=== PATIENT | female | born 1945 | race Caucasian/White ===

== ENCOUNTER 2022-05-03 15:54 | Inpatient (IN) | payer OTHER ==
[~2022-05-03] VITALS: Ht 160 cm; Wt 78.5 kg
[2022-05-03 16:14] VITALS: BP 147/79
[2022-05-03] MEDS ORDERED: NACL 0.9% 1,000 ML IV ONE ×2 (16:55→19:25)
--- NOTE | 2022-05-03 17:05 | NUR ---
76YO FEMALE PT C/O THROBBING 7/10 R HAND PAIN X5DAYS. PT REPORTS RADIATION UP TO L SHOULDER ALONG W/ UNCONTROLLED MUSCLE SPASMS THAT LAST UP TO 10MIN. DURING ASSESSMENT PT HAD X2 EPISODES THAT CAUSED ABNORMAL FLEXION, DENIES LOSS OF SENSATION. PT UNABLE TO MOVE FINGERS AND STATES IS NOT AT BASELINE. CAP REFILL <3 THROUGHOUT HAND AND ARM. ARM PRESENTS W/O PHYSICAL INJURY . PT ALSO C/O INFECTION UNDER R THUMB NAIL DUE TO FINGER BITING AND PRESENTS WITH REDDENED SWELLING. PT AAOX4, NO VISIBLE DISTRESS. RSPIRATIONS EVEN AND UNLABORED. PT AMBULATORY USING WHEELCHAIR. BED AT LOWEST POSITION, BED RAIL UPX2. PT ON MONITOR HX: RA, HTN, DIABETES NKA
--- NOTE | 2022-05-03 17:35 | NUR ---
IV 20GA RT HAND
--- NOTE | 2022-05-03 17:39 | NUR ---
ER AT BEDSIDE FOR EVAL
--- NOTE | 2022-05-03 17:47 | NUR ---
LAB AT BEDSIDE SIDE
[2022-05-03 18:18] LABS: BASOPHILS % (AUTO) 0.7 % (0.0-2.0); EOSINOPHILS # (AUTO) 0.1 K/uL (0-0.4); EOSINOPHILS % (AUTO) 0.9 % (0.0-4.0); HEMATOCRIT 35.7 % (36-48); HEMOGLOBIN 11.8 g/dL (12.0-16.0); LYMPHOCYTES % (AUTO) 14.1 % (20.5-51.1); MEAN CORPUSCULAR HEMOGLOBIN 32 pg (27-31); MEAN CORPUSCULAR HGB CONC 33 g/dL (33-37); MONOCYTES # (AUTO) 0.3 K/uL (0.8-1.0); MONOCYTES % (AUTO) 4.8 % (1.7-9.3); NEUTROPHILS # (AUTO) 5.6 K/uL (1.8-7.7); NEUTROPHILS % (AUTO) 79.5 % (42.2-75.2); PLATELET COUNT (AUTO) 349 K/uL (140-450); RED BLOOD CELL COUNT(AUTO) 3.76 MIL/uL (4.20-5.40)
[2022-05-03 18:43] LABS: ALBUMIN 2.4 g/dL (3.4-5.0); ANION GAP 22.4 (8-16); ASPARTATE AMINOTRANSFERASE 14 U/L (15-37); CARBON DIOXIDE 16.8 mmol/L (21-32); CHLORIDE 101 mmol/L (98-107); POTASSIUM 4.2 mmol/L (3.5-5.1); SODIUM SERUM 136 mmol/L (136-145); TOTAL BILIRUBIN 0.5 mg/dL (0.0-1.0); UREA NITROGEN, BLOOD 28 mg/dL (7-18)
[2022-05-03 18:45] LABS: GLUCOSE 454 mg/dL (74-106)
[2022-05-03] MEDS ORDERED: INSULIN REGULAR, HUMAN 100 UNIT in NACL 0.9% 100 ML IV ONE ×2 (19:25)
--- NOTE | 2022-05-03 19:30 | NUR ---
REPORT GIVEN TO YANNA LANE. ALL QUESTIONS ANSWERED. TRANSFER OF CARE AT THIS TIME
--- NOTE | 2022-05-03 20:00 | NUR ---
ASSUMED CARE AT THIS TIME
[2022-05-03] MEDS ORDERED: POTASSIUM CHL 20 MEQ/ 1/2 NS 1,000 ML IV ONE (20:40)
[2022-05-03] MEDS ORDERED: KCL 20 MEQ/WATER INJ PREMIX 200 ML IV PRN (21:00)
[2022-05-03] MEDS ORDERED: MAGNESIUM OXIDE 400 MG TAB PO PRN (21:00)
[2022-05-03] MEDS ORDERED: ACETAMINOPHEN 325 MG TAB PO PRN (21:00)
[2022-05-03] MEDS ORDERED: POTASSIUM CHLORIDE 10 MEQ TABER PO PRN (21:00)
[2022-05-03] MEDS ORDERED: HYDROcodone/APAP 5/325 MG 1 TAB TAB PO PRN (21:00)
[2022-05-03] MEDS ORDERED: MAG SULF 2000 MG/WATER PREMIX 50 ML IV PRN (21:00)
[2022-05-03] MEDS ORDERED: ONDANSETRON 4 MG/2 ML VIAL IVP PRN (21:00)
[2022-05-03] MEDS ORDERED: MORPHINE SULFATE 4 MG/ML SYR IVP PRN (21:00)
[2022-05-03] MEDS ORDERED: DEXTROSE 50% 50 ML SYR IVP PRN (21:05)
[2022-05-03] MEDS: BLOOD GLUCOSE MONITORING 1 DEV DEV FS SCH ×3 (21:34→22:38)
--- NOTE | 2022-05-03 22:30 | NUR ---
BG 90. INSULIN GTT HELD
[2022-05-03] MEDS ORDERED: GLIP5TER PO (23:11)
[2022-05-03] MEDS ORDERED: CEPH-588 PO (23:11)
[2022-05-03] MEDS ORDERED: MEX2.5 (23:11)
[2022-05-03] MEDS ORDERED: METF-346 PO (23:11)
[2022-05-03] MEDS ORDERED: VITA1TAB44 PO (23:13)
[2022-05-03] MEDS: NACL 0.9% 1,000 ML IV SCH (23:17)
--- NOTE | 2022-05-03 23:20 | NUR ---
TO ICU VIA [facility]. ACCOMPANIED BY RN AND ERT
--- NOTE | 2022-05-03 23:30 | NUR ---
RECEIVED REPORT FROM ER (REJI BUTLER). PATIENT IS ADMITTED TO ICU FOR MANAGEMENT OF DKA. WILL CONTINUE TO MONITOR BLOOD GLUCOSE LEVELS PER MD ORDERS. PATIENT IS AWAKE, ALERT AND ORIENTED, HAS PERIPHERAL IV RIGHT HAND (18) AND PERIPHERAL IV LEFT FOREARM (18G). PATIENT HAS NOTICEABLE, TREMOR OF LEFT HAND; ALSO HAS COMPLAINTS OF LEFT ARM PAIN AND WEAKNESS. REFER TO IMAGING REPORTS FOR LEFT WRIST.
[2022-05-04] VITALS (12 sets, daily range): BP systolic 97–139; BP diastolic 49–75
--- NOTE | 2022-05-04 | NUR ---
PATIENT REPORTS THAT SHE HAS HISTORY OF FALLS, MOST RECENTLY HAD A FALL APPROXIMATELY 1 WEEK AGO AT HOME, HIT HEAD ON BATHTUB.
[2022-05-04] MEDS: BLOOD GLUCOSE MONITORING 1 DEV DEV FS SCH ×19 (00:05→23:46)
--- NOTE | 2022-05-04 00:30 | NUR ---
0000 LAB RESULTS ANION GAP: 17.8 LAST GLUCOSE = [address] MCCLELLAND FOR NEW ORDERS
[2022-05-04 01:22] LABS: ANION GAP 17.8 (8-16); CHLORIDE 106 mmol/L (98-107); CREATININE 0.7 mg/dL (0.6-1.3); GLUCOSE 97 mg/dL (74-106); POTASSIUM 3.8 mmol/L (3.5-5.1); SODIUM SERUM 142 mmol/L (136-145); UREA NITROGEN, BLOOD 23 mg/dL (7-18)
[2022-05-04 01:27] LABS: MAGNESIUM 1.9 mg/dL (1.8-2.4); PHOSPHORUS 2.5 mg/dL (2.5-4.9)
[2022-05-04] MEDS ORDERED: INSULIN LISPRO SLIDING SCALE 100 UNITS/ML VIAL SUBQ PRN (03:05)
--- NOTE | 2022-05-04 05:40 | NUR ---
RECEIVED PHONE CALL FROM PATIENT'S SON; YUE WHO REPORTS THAT PATIENT INITIALLY ARRIVED TO ER FOR EVALUATION OF LEFT THUMB INFECTION AND REQUESTED THAT FINGER RECEIVE TREATMENT. PER SON, IF YOU SQUEEZE THE FINGER, BLOOD AND PUS COME OUT. FINGER HAS BEEN POSSIBLY AFFECTED X1 WEEK. INFORMED SON THAT I WOULD ENDORSE CONCERN TO DAY SHIFT FOR FOLLOW UP
--- NOTE | 2022-05-04 06:09 | NUR ---
PATIENT WITH SEIZURE LIKE ACTIVITY LASTING 2 MINUTES AND 11 SECONDS WITH COMPLETE ABSENCE OF SPEECH, BLANK STARE, AND TWITCHING OF LEFT EYE. IT WAS NOTED THAT PATIENT HAD BECOME INCONTINENT OF URINE; WAS PREVIOUSLY ABLE TO VERBALIZE WHEN SHE NEEDED TO USE THE RESTROOM UPON CESSATION OF MOVEMENT PATIENT BEGAN TO SPEAK AGAIN AND THREATEN TO BITE AND HIT NURSING STAFF. PATIENT. CALL PLACED TO DR. LUNA TO REPORT MORNING EPISODE. VERBALLY NOTIFIED
[2022-05-04 06:24] LABS: MAGNESIUM 1.9 mg/dL (1.8-2.4); PHOSPHORUS 2.6 mg/dL (2.5-4.9)
[2022-05-04 06:28] LABS: ALBUMIN 2.4 g/dL (3.4-5.0); ANION GAP 20.4 (8-16); ASPARTATE AMINOTRANSFERASE 18 U/L (15-37); CARBON DIOXIDE 19.6 mmol/L (21-32); CHLORIDE 105 mmol/L (98-107); CREATININE 0.7 mg/dL (0.6-1.3); GLUCOSE 175 mg/dL (74-106); SODIUM SERUM 141 mmol/L (136-145); TOTAL BILIRUBIN 0.4 mg/dL (0.0-1.0); UREA NITROGEN, BLOOD 21 mg/dL (7-18)
[2022-05-04 06:59] LABS: BASOPHILS % (AUTO) 0.5 % (0.0-2.0); EOSINOPHILS # (AUTO) 0.1 K/uL (0-0.4); EOSINOPHILS % (AUTO) 1.2 % (0.0-4.0); HEMATOCRIT 35.4 % (36-48); HEMOGLOBIN 11.7 g/dL (12.0-16.0); LYMPHOCYTES # (AUTO) 1.6 K/uL (2.5-16.5); MEAN CORPUSCULAR HEMOGLOBIN 32 pg (27-31); MEAN CORPUSCULAR HGB CONC 33 g/dL (33-37); MEAN CORPUSCULAR VOLUME 96.3 fL (80-94); MONOCYTES # (AUTO) 0.4 K/uL (0.8-1.0); MONOCYTES % (AUTO) 5.4 % (1.7-9.3); NEUTROPHILS # (AUTO) 4.9 K/uL (1.8-7.7); NEUTROPHILS % (AUTO) 69.9 % (42.2-75.2); PLATELET COUNT (AUTO) 337 K/uL (140-450); RED BLOOD CELL COUNT(AUTO) 3.67 MIL/uL (4.20-5.40); RED CELL DISTRIBUTION WIDTH 15.3 % (11.6-13.7)
--- NOTE | 2022-05-04 07:15 | NUR ---
RECEIVED PT ALERT AND ORIENTED X4, ABLE TO VERBALIZE NEEDS. O2 SAT 100% ON ROOM AIR. SINUS RHYTHM WITH BBB ON MONITOR. BOWEL SOUNDS ACTIVE X 4 QUADS. CONTINENT BOWEL AND BLADDER. PERIPHERAL IV 20 GAUGE ON RIGHT HAND INTACT AND PATENT. PERIPHERAL IV 20 GAUGE ON LEFT FOREARM INTACT AND PATENT. SAFETY PRECAUTIONS IN PLACE.
--- NOTE | 2022-05-04 07:22 | NUR ---
ENDORSED CARE OF PATIENT TO DAY SHIFT (REJI CALVIN)
[2022-05-04] MEDS ORDERED: BLOOD GLUCOSE MONITORING 1 DEV DEV FS SCH ×2 (07:30→10:30)
--- NOTE | 2022-05-04 07:33 | NUR ---
PT HAD AN EPISODE OF SPASM OF UPPER BODY. DURING EPISODE, PT WAS ABLE TO HOLD CONVERSATION AND TRACK WITH EYES. NEURO ASSESSMENT DONE AND PT A&OX4. VSS. NO C/O PAIN. SAFETY PRECAUTIONS IN PLACE.
[2022-05-04] MEDS: NACL 0.9% 1,000 ML IV SCH ×4 (08:34→20:45)
--- NOTE | 2022-05-04 08:46 | NUR ---
DC PLANNIN YRS OLD FEMALE PATIENT WAS ADMITTED FROM HOME WITH A DX OF DKA. PATIENT HAS A HX OF DM, HTN AND RA. CXR NORMAL, XR LEFT WRIST NO ACUTE OSSEOUS ABNORMALITY. RAPID COVID TEST NEGATIVE. ANION GAP 22.4-17.8 AND 20.4 SEEN BY CRITICAL MD DR HORTON ORDERED INSULIN DRIP. DC PLAN TO GO HOME WHEN STABLE CM TO FOLLOW Addendum: 05/06/22 at 1443 by Linda Sam RN DC PLANNING: PER NEUROLOGIST RECOMMENDED MRI OF THE BRAIN TO BE DONE. CALLED [facility]ELLE SPOKE WITH TRAFFIC RATE COMPUTER ELMO STATED IF PT GETS HERE WITH IN ONE HR HE WILL BE ABLE TO DO IT. ARRANGED TRANSPORT WITH [facility] PT WILL BE PICKED UP WITH IN 30 MIN. NOTIFIED JANUSZ MENDOZA. CM TO FOLLOW
--- NOTE | 2022-05-04 08:50 | NUR ---
CONTACTED DR. LUNA REGARDING ANION GAP AND DISCUSSED DR. MCCLELLAND'S DISCONTINUED INSULIN DRIP. NEW ORDER RECEIVED FOR DIET. INFORMED DR. LUNA REGARDING LEFT THUMB REDNESS. PER MD, WILL COME IN TO TAKE A LOOK AT LEFT THUMB REDNESS.
--- NOTE | 2022-05-04 09:03 | NUR ---
PATIENT HAS BEEN SCREENED AND CATEGORIZED HIGH NUTRITION RISK. PATIENT WILL BE SEEN WITHIN 1-2 DAYS OF ADMISSION. / VIJI FARMER RD
--- NOTE | 2022-05-04 10:11 | NUR ---
DR. JACOB AT BEDSIDE EXAMINING PT. PT WITH UPPER BODY SPASM AND STATES THAT SPASMS STARTED SINCE SHE HIT HER HEAD ON BATHTUB ON TUESDAY. NEW ORDER RECEIVED FOR NEURO CONSULT AND EEG. DISCUSSED LEFT THUMB REDNESS AND ANION GAP. NEW ORDER RECEIVED.
[2022-05-04 10:24] LABS: ANION GAP 19.2 (8-16); CARBON DIOXIDE 21.2 mmol/L (21-32); CHLORIDE 104 mmol/L (98-107); CREATININE 0.7 mg/dL (0.6-1.3); GLUCOSE 182 mg/dL (74-106); POTASSIUM 4.4 mmol/L (3.5-5.1); SODIUM SERUM 140 mmol/L (136-145); UREA NITROGEN, BLOOD 19 mg/dL (7-18)
[2022-05-04] MEDS ORDERED: INSULIN REGULAR, HUMAN 100 UNIT in NACL 0.9% 100 ML IV SCH ×2 (10:25)
[2022-05-04 10:43] LABS: MAGNESIUM 1.8 mg/dL (1.8-2.4); PHOSPHORUS 2.2 mg/dL (2.5-4.9)
[2022-05-04] MEDS ORDERED: DEXTROSE 50% 50 ML SYR IVP PRN (10:45)
[2022-05-04] MEDS: INSULIN REGULAR, HUMAN 100 UNIT in NACL 0.9% 100 ML IV SCH ×6 (11:47→23:47)
[2022-05-04] MEDS: DEXT 5% / NACL 0.45% 1,000 ML IV SCH ×3 (11:49→20:28)
--- NOTE | 2022-05-04 12:58 | NUR ---
URINE CULTURE COLLECTED AND WALKED TO LAB.
--- NOTE | 2022-05-04 13:00 | NUR ---
Dr. Humphries at bedside examining pt. Pt with an episode of spasms that lasted for 10 seconds. Pt able to hold conversation during spasms with the doctor.
[2022-05-04 13:16] LABS: ANION GAP 18.5 (8-16); CARBON DIOXIDE 21.3 mmol/L (21-32); CHLORIDE 103 mmol/L (98-107); CREATININE 0.6 mg/dL (0.6-1.3); GLUCOSE 228 mg/dL (74-106); POTASSIUM 3.8 mmol/L (3.5-5.1); SODIUM SERUM 139 mmol/L (136-145); UREA NITROGEN, BLOOD 17 mg/dL (7-18)
[2022-05-04 13:24] LABS: MAGNESIUM 1.7 mg/dL (1.8-2.4); PHOSPHORUS 2.4 mg/dL (2.5-4.9)
[2022-05-04 13:56] LABS: APPEARANCE,URINE CLEAR (CLEAR); BILIRUBIN,URINE 1+ (NEGATIVE); BLOOD, URINE TRACE-I (NEGATIVE); COLOR,URINE YELLOW (YELLOW); LEUKOCYTE ESTERASE ,URINE 2+ (NEGATIVE); NITRITE, URINE NEGATIVE (NEGATIVE); UGLUCOSE 2+ (NEGATIVE)
[2022-05-04 14:25] LABS: RBC,URINE 0-5 /HPF (0-5)
[2022-05-04 14:27] LABS: OTHER CASTS, URINE None Seen /LPF (None Seen)
--- NOTE | 2022-05-04 14:54 | NUR ---
05/04/22 RD INITIAL ASSESSMENT COMPLETED PLEASE REFER TO NUTRITION ASSESSMENT UNDER CARE ACTIVITY FOR ESTIMATED NUTRITIONAL NEEDS. 1. WHEN/ IF MEDICALLY APPROVED START ON CCHO 60G DIET. -MONITOR PO INTAKE, GLUCOSE LEVELS AND GI SYMPTOMS 2. RD TO FOLLOW-UP 3-5 DAYS, MODERATE RISK REVIEWED BY VIJI FARMER RD
[2022-05-04 15:05] LABS: ANION GAP 17.4 (8-16); CARBON DIOXIDE 21.4 mmol/L (21-32); CHLORIDE 104 mmol/L (98-107); CREATININE 0.6 mg/dL (0.6-1.3); GLUCOSE 217 mg/dL (74-106); POTASSIUM 3.8 mmol/L (3.5-5.1); SODIUM SERUM 139 mmol/L (136-145); UREA NITROGEN, BLOOD 17 mg/dL (7-18)
[2022-05-04 16:33] LABS: ANION GAP 13.6 (8-16); CARBON DIOXIDE 21.8 mmol/L (21-32); CHLORIDE 104 mmol/L (98-107); CREATININE 0.7 mg/dL (0.6-1.3); GLUCOSE 261 mg/dL (74-106); POTASSIUM 3.4 mmol/L (3.5-5.1); SODIUM SERUM 136 mmol/L (136-145); UREA NITROGEN, BLOOD 16 mg/dL (7-18)
[2022-05-04 16:34] LABS: MAGNESIUM 1.6 mg/dL (1.8-2.4); PHOSPHORUS 1.9 mg/dL (2.5-4.9)
--- NOTE | 2022-05-04 19:05 | NUR ---
REPORT GIVEN BY DAY SHIFT, MARIXA MENDOZA. PT. AWAKE, ALERT AND ORIENTED. ABLE TO EXPRESS NEEDS. ON ROOM AIR WITH O2 SAT 93%. BILATERAL LUNGS CLEAR. ABDOMEN SOFT, ROUNDED AND NON TENDER. NPO EXCEPT MEDS. ABLE TO ASK BEDPAN WHEN URINATING. IV TO LEFT HAND 24G, INFUSING D5 1/2 NS AT 200 ML/HR. IV TO LEFT FOREARM 20G INFUSING INSULIN DRIP 0.05U/KG/HR. SR ON THE MONITOR. PER REPORT PT. LEFT THUMB NEEDS TO BE SOAKED EVERY HOUR FOR 15 MIN PER MD ORDERED. WILL CONT. TO MONITOR.
--- NOTE | 2022-05-04 19:10 | NUR ---
ENDORSED TO STIFF STRAW HAT WASHER NURSE YONY FOR CONTINUITY OF CARE AND ENDORSED MAGNESIUM LEVEL AND MED TO BE GIVEN.
--- NOTE | 2022-05-04 19:25 | NUR ---
REPORT GIVEN BY DAY SHIFT, REJI CALVIN. PT. AWAKE, ALERT AND ORIENTED. ABLE TO MAKE HER NEEDS KNOWN. PT. HAD DIALYSIS FROM DAY SHIFT WITH 1.5L OUTPUT. PT. BILATERAL LUNGS WITH MINIMAL COARSE SOUNDS. CONT. ON HI FLOW 40L/70%. PT. STILL HAS EPISODE OF DRY COUGH. IV SITE MIDLINE TO RIGHT UPPER ARM, DRY, PATENT AND INTACT. AV SHUNT TO LEFT UPPER ARM. PT. WITH DINNER TRAY AT THE BEDSIDE AND ONLY ATE 5%. SCD REFUSED. WILL CONT. TO MONITOR.
--- NOTE | 2022-05-04 20:32 | NUR ---
PT. SON YUE VISITED AND AT THE BEDSIDE. ASK QUESTIONS IF HOW'S HIS MOM, PROVIDED UPDATE WITH HER BLOOD SUGAR AND WHY MOM STILL IN ICU. BECAUSE PT. IS ON INSULIN DRIP. PER SON, MOM HAD AN ACCIDENT A WEEK AGO (WEEKEND). SHE WENT ON THE BATHTUB, THEN SAT DOWN TO THE CHAIR, FELL AND BUMPED HER HEAD TO THE BATHTUB. HER MOM DEVELOPED A BIG, LIKE A BALL SIZE TO HER RIGHT SIDE OF THE HEAD. I ASKED HIM IF HE BROUGHT MOM TO THE HOSPITAL OR DOCTOR TO BE CHECKED AND HE STATED NO. ACCORDING TO THE SON, HE APPLIED SOME ICE TO THE SITE. PT. STARTED TO SHAKE AT 2048 FOR 25 SECONDS, WHILE THE SON AT THE BEDSIDE. SON WANTS TO KNOW IF WHAT THE DOCTOR SAID ABOUT IT. I MENTIONED THAT DOCTOR AWARE AND ORDERED EEG AND RESULT IS STILL PENDING. SON ALSO STATED THAT HE ADDED HER SISTER TO THE FACESHEET TO GET INFORMATION WITH THEIR MOM'S CONDITION. NAME OF THE SISTER IS MIRZA . ALSO, SON REQUESTED THAT IF MOM WILL BE DISCHARGED TO GIVE THEM SOME HEADS UP AHEAD OF TIME SO THEY CAN ARRANGE THE [employer] SINCE THEY ARE ALL WORKING. WILL ENDORSE TO THE NEXT SHIFT.
[2022-05-04 20:46] LABS: ANION GAP 13.2 (8-16); CARBON DIOXIDE 22.7 mmol/L (21-32); CHLORIDE 104 mmol/L (98-107); CREATININE 0.7 mg/dL (0.6-1.3); GLUCOSE 282 mg/dL (74-106); POTASSIUM 3.9 mmol/L (3.5-5.1); SODIUM SERUM 136 mmol/L (136-145); UREA NITROGEN, BLOOD 15 mg/dL (7-18)
[2022-05-04 20:58] LABS: MAGNESIUM 1.5 mg/dL (1.8-2.4); PHOSPHORUS 1.8 mg/dL (2.5-4.9)
[2022-05-04] MEDS: AMOXIL/CLAVULANATE 875/125 MG 1 TAB PO SCH (21:00)
[2022-05-04] MEDS: levETIRAcetam 500 MG in NACL 0.9% 100 ML IV SCH (21:00)
[2022-05-04] MEDS ORDERED: levETIRAcetam 100 MG/ML VIAL IV ONE (21:41)
--- NOTE | 2022-05-04 22:27 | NUR ---
MAG OXIDE 400 MG PO PRN GIVEN DUE TO MG LEVEL OF 1.6.
[2022-05-05] VITALS (15 sets, daily range): BP systolic 91–142; BP diastolic 41–87
[2022-05-05] MEDS: BLOOD GLUCOSE MONITORING 1 DEV DEV FS SCH ×14 (00:46→21:11)
[2022-05-05] MEDS: INSULIN REGULAR, HUMAN 100 UNIT in NACL 0.9% 100 ML IV SCH ×14 (00:47→07:02)
--- NOTE | 2022-05-05 01:29 | NUR ---
TOOK PICTURE OF PT. LEFT THUMB, PRINTED AND ON FILE.
[2022-05-05] MEDS: DEXT 5% / NACL 0.45% 1,000 ML IV SCH ×2 (01:52→06:45)
[2022-05-05] MEDS: NACL 0.9% 1,000 ML IV SCH ×2 (01:53→06:45)
--- NOTE | 2022-05-05 04:17 | NUR ---
IV SITE LEAKING TO LEFT ARM. IV CHANGED, PLACED 20G AT LEFT LOWER FOREARM.
--- NOTE | 2022-05-05 04:33 | NUR ---
LAB AT THE BEDSIDE TO DRAW CMP,MG,PHOS.
--- NOTE | 2022-05-05 04:50 | NUR ---
PT. PROVIDED SPONGE BATH, PERSONAL CARE, JORGE-CARE AND ORAL CARE. PT. TOLERATED PROCEDURE WELL.
[2022-05-05 05:42] LABS: ANION GAP 10.8 (8-16); ASPARTATE AMINOTRANSFERASE 17 U/L (15-37); CARBON DIOXIDE 24.8 mmol/L (21-32); CHLORIDE 109 mmol/L (98-107); CREATININE 0.6 mg/dL (0.6-1.3); GLUCOSE 186 mg/dL (74-106); POTASSIUM 3.6 mmol/L (3.5-5.1); SODIUM SERUM 141 mmol/L (136-145); TOTAL BILIRUBIN 0.2 mg/dL (0.0-1.0); UREA NITROGEN, BLOOD 11 mg/dL (7-18)
--- NOTE | 2022-05-05 07:20 | NUR ---
ALL CARE ENDORSED TO REJI CALVIN FOR CONTINUITY OF CARE. ALL QUESTIONS ANSWERED.
--- NOTE | 2022-05-05 07:25 | NUR ---
RECEIVED PT ALERT & ORIENTED X4. O2 SAT 100% ON ROOM AIR. SINUS RHYTHM ON MONITOR. CONTINUES NPO EXCEPT FOR MEDS. ABD SOFT WITH ACTIVE BOWEL SOUNDS. CONTINENT BOWEL AND BLADDER. PERIPHERAL IV 20 GAUGE ON LEFT FOREARM INTACT AND PATENT INFUSING INSULIN DRIP @ 0.05 UNIT/KG/HR AND D5 1/2NS @200ML/HR. PERIPHERAL IV 24 GAUGE ON LEFT HAND INTACT AND PATENT. SAFETY PRECAUTIONS IN PLACE.
[2022-05-05 07:59] LABS: BASOPHILS % (AUTO) 0.5 % (0.0-2.0); EOSINOPHILS # (AUTO) 0.1 K/uL (0-0.4); EOSINOPHILS % (AUTO) 2.8 % (0.0-4.0); HEMATOCRIT 34.5 % (36-48); HEMOGLOBIN 11.5 g/dL (12.0-16.0); LYMPHOCYTES # (AUTO) 1.4 K/uL (2.5-16.5); LYMPHOCYTES % (AUTO) 26.2 % (20.5-51.1); MEAN CORPUSCULAR HEMOGLOBIN 32 pg (27-31); MEAN CORPUSCULAR HGB CONC 33 g/dL (33-37); MEAN CORPUSCULAR VOLUME 95.1 fL (80-94); MONOCYTES # (AUTO) 0.4 K/uL (0.8-1.0); MONOCYTES % (AUTO) 7.9 % (1.7-9.3); NEUTROPHILS # (AUTO) 3.3 K/uL (1.8-7.7); NEUTROPHILS % (AUTO) 62.6 % (42.2-75.2); PLATELET COUNT (AUTO) 307 K/uL (140-450); RED BLOOD CELL COUNT(AUTO) 3.63 MIL/uL (4.20-5.40); RED CELL DISTRIBUTION WIDTH 15.5 % (11.6-13.7); WHITE BLOOD COUNT (AUTO) 5.2 K/uL (4.8-10.8)
[2022-05-05] MEDS: AMOXIL/CLAVULANATE 875/125 MG 1 TAB PO SCH ×2 (08:06→21:20)
[2022-05-05] MEDS: levETIRAcetam 500 MG in NACL 0.9% 100 ML IV SCH (08:38)
[2022-05-05 08:49] LABS: ANION GAP 10.1 (8-16); CARBON DIOXIDE 22.6 mmol/L (21-32); CHLORIDE 113 mmol/L (98-107); CREATININE 0.6 mg/dL (0.6-1.3); GLUCOSE 69 mg/dL (74-106); POTASSIUM 3.7 mmol/L (3.5-5.1); SODIUM SERUM 142 mmol/L (136-145); UREA NITROGEN, BLOOD 9 mg/dL (7-18)
--- NOTE | 2022-05-05 08:58 | NUR ---
REPORTED TREND OF ANION GAP TO DR. JACOB WITH LATEST BLOOD SUGAR. NEW ORDERS RECEIVED.
[2022-05-05 09:25] LABS: ALBUMIN 1.9 g/dL (3.4-5.0); ANION GAP 2.7 (8-16); ASPARTATE AMINOTRANSFERASE 21 U/L (15-37); CARBON DIOXIDE 21.9 mmol/L (21-32); CHLORIDE 112 mmol/L (98-107); CREATININE 0.6 mg/dL (0.6-1.3); GLUCOSE 62 mg/dL (74-106); POTASSIUM 3.6 mmol/L (3.5-5.1); SODIUM SERUM 133 mmol/L (136-145); TOTAL BILIRUBIN 0.2 mg/dL (0.0-1.0); UREA NITROGEN, BLOOD 9 mg/dL (7-18)
[2022-05-05] MEDS ORDERED: INSULIN LANTUS 100 UNITS/ML 10 ML VIAL SUBQ SCH (09:30)
--- NOTE | 2022-05-05 10:28 | NUR ---
DR. BRANDT AT BEDSIDE EXAMINING PT. NEW ORDERS RECEIVED.
--- NOTE | 2022-05-05 10:30 | NUR ---
RECEIVED REPORT FROM MARIXA.PT IS AWAKE, ALERT AND ORIENTED. SHE SHERMAN CONGENIAL AND COOPERATIVE
[2022-05-05 10:49] LABS: MAGNESIUM 1.9 mg/dL (1.8-2.4)
--- NOTE | 2022-05-05 12:32 | NUR ---
PT. WITH CHANGE OF LATONYA SCALE AT MODERATE TO HIGH RISK, JORGE-ANAL AND INNER BUTTOCKS WITH MOISTURE ASSOCIATED DERMATITIS. RECOMMEND BARRIER CREAM. CONTINUE TO FOLLOW PRESSURE INJURY PREVENTION INTERVENTIONS. -APPLY Z GUARD TO JORGE-ANAL AND INNER BUTTOCKS BID AND PRN IS SOILING. -POSITIONING: TURN AND REPOSITION PATIENT Q 2H OR SOONER USE PILLOWS TO KEEP BONY PROMINENCES FROM DIRECT CONTACT WITH SURFACES USE REPOSITIONING WEDGES TO PROVIDE 30-DEGREE ANGLE FOR SIDE LYING POSITIONS OFFLOADING OR FOAM DRESSING TO ALL TUBING TO PREVENT MEDICAL DEVICES RELATED PRESSURE INJURY -RE-EVALUATING AND MANAGING INCONTINENCE MONITOR SKIN CONDITION DURING POSITION CHANGE DO NOT MASSAGE REDNESS, BONY PROMINENCES FREQUENT JORGE-CARE AND PROVIDE BARRIER CREAMS PRN IF SOILING MOISTURE CONTROL BY OFFER BED THOMPSON/URINAL /ABSORBENT PAD TO WICK AND HOLD MOISTURE KEEP SKIN DRY AND PROTECT FROM FRICTION -MANAGE FRICTION/SHEAR/MOBILITY KEEP HOB AT THE LOWEST LEVEL OF ELEVATION NO MORE THAN 30 DEGREE UNLESS OTHERWISE CONTRAINDICATED USE LIFT SHEET OR TRANSFER DEVICE TO MOVE PATIENT AND PREVENT LATERAL SHEER. PROTECT HEELS, ELBOWS BONY PROMINENCES WITH SKIN BERRIES OR FOAM DRESSING IF EXPOSED TO FRICTION OFFLOAD BILATERAL HEELS BY PLACING PILLOWS UNDER CALVES AT ALL TIMES, UNLESS OTHERWISE CONTRAINDICATED -PRESSURE REDISTRIBUTION SURFACE THERAPY RODRIGO ISOFLEX MATTRESS -NUTRITION: PLEASE FOLLOW RD RECOMMENDATIONS AND OFFER NUTRITION SUPPLEMENTS IF ORDERED. PLEASE CONTACT WOUND CARE NURSE FOR ANY QUESTION AND CHANGE OF WOUND CONDITION.
--- NOTE | 2022-05-05 12:45 | NUR ---
SEEN AND EXAMINED BY DR. JACOB. NO NEW ORDERS.
--- NOTE | 2022-05-05 12:47 | NUR ---
LATE ENTRY- IV NORMAL SALINE DISCONTINUED AT 2320. INSULIN DISCONTINUED AT 2320. IV POTASSIUM DISCONTINUED AT 2320.
[2022-05-05] MEDS: Z-GUARD PASTE TP SCH (12:59)
--- NOTE | 2022-05-05 13:30 | NUR ---
SEEN AND EXAMINED BY DR. HESTER.
[2022-05-05] MEDS: INSULIN LISPRO SLIDING SCALE 100 UNITS/ML VIAL SUBQ PRN ×2 (16:42→21:17)
--- NOTE | 2022-05-05 19:22 | NUR ---
ENDORSED TO BRICK DROPPER NURSE ELLE FOR CONTINUITY OF CARE.
[2022-05-05] MEDS: levETIRAcetam 1,000 MG in NACL 0.9% 100 ML IV SCH (21:00)
[2022-05-06] VITALS (11 sets, daily range): BP systolic 117–173; BP diastolic 50–88
[2022-05-06] MEDS: Z-GUARD PASTE TP SCH ×2 (01:36→13:57)
--- NOTE | 2022-05-06 03:05 | NUR ---
PT HAVING TO USE BED THOMPSON FREQUENTLY AGGRAVATING TE EXCORIATION ON HER ONNER FOLDS OF HER TIGHT BUTTOCK. SHE DENIES PAIN IN THR AREA. HYDRO GUARD CREAM APPLIED.
[2022-05-06 05:13] LABS: BASOPHILS % (AUTO) 0.5 % (0.0-2.0); EOSINOPHILS # (AUTO) 0.1 K/uL (0-0.4); EOSINOPHILS % (AUTO) 2.6 % (0.0-4.0); HEMOGLOBIN 11.6 g/dL (12.0-16.0); LYMPHOCYTES # (AUTO) 1.1 K/uL (2.5-16.5); LYMPHOCYTES % (AUTO) 22.2 % (20.5-51.1); MEAN CORPUSCULAR HEMOGLOBIN 31 pg (27-31); MEAN CORPUSCULAR HGB CONC 33 g/dL (33-37); MEAN CORPUSCULAR VOLUME 94.9 fL (80-94); MONOCYTES # (AUTO) 0.4 K/uL (0.8-1.0); MONOCYTES % (AUTO) 8.2 % (1.7-9.3); NEUTROPHILS # (AUTO) 3.3 K/uL (1.8-7.7); NEUTROPHILS % (AUTO) 66.5 % (42.2-75.2); PLATELET COUNT (AUTO) 278 K/uL (140-450); RED BLOOD CELL COUNT(AUTO) 3.69 MIL/uL (4.20-5.40); RED CELL DISTRIBUTION WIDTH 15.7 % (11.6-13.7); WHITE BLOOD COUNT (AUTO) 4.9 K/uL (4.8-10.8)
[2022-05-06 05:20] LABS: ALBUMIN 1.8 g/dL (3.4-5.0); ANION GAP 11.9 (8-16); ASPARTATE AMINOTRANSFERASE 16 U/L (15-37); CARBON DIOXIDE 22.4 mmol/L (21-32); CHLORIDE 109 mmol/L (98-107); CREATININE 0.6 mg/dL (0.6-1.3); GLUCOSE 260 mg/dL (74-106); MAGNESIUM 1.9 mg/dL (1.8-2.4); POTASSIUM 4.3 mmol/L (3.5-5.1); SODIUM SERUM 139 mmol/L (136-145); TOTAL BILIRUBIN 0.3 mg/dL (0.0-1.0); UREA NITROGEN, BLOOD 10 mg/dL (7-18)
--- NOTE | 2022-05-06 06:23 | NUR ---
PT DIAPIERED BECAUSE SHE TIRED OF WAKING UP EVERY HOUR TO USE THE BEDPAN . JMEFOPLEX foam DRSG APPLIED TO BUTTOCK PLUS THE HYDRO GUARD CREAM. SHE CONTIUES TO OOZE DIARRHEA STOOL.
--- NOTE | 2022-05-06 07:30 | NUR ---
RECEIVED REPORT FROM HEALTH SPECIALIST. PT ALERT & ORIENTED X4. NO C/O PAIN . NO RESPIRATORY DISTRESS, O2 SAT 100% ON ROOM AIR. SINUS RHYTHM ON MONITOR. ABD SOFT WITH ACTIVE BOWEL SOUNDS. CONTINENT BOWEL AND BLADDER. PERIPHERAL IV 20 GAUGE ON LEFT FOREARM AND PERIPHERAL IV 24 GAUGE ON LEFT HAND INTACT AND PATENT. SAFETY PRECAUTIONS IN PLACE. PLAN OF CARE DISCUSSED, PT VERBALIZED UNDERSTANDING
[2022-05-06] MEDS: levETIRAcetam 1,000 MG in NACL 0.9% 100 ML IV SCH ×2 (08:20→20:57)
[2022-05-06] MEDS: AMOXIL/CLAVULANATE 875/125 MG 1 TAB PO SCH ×2 (08:20→21:02)
[2022-05-06] MEDS: BLOOD GLUCOSE MONITORING 1 DEV DEV FS SCH ×4 (08:20→21:02)
[2022-05-06] MEDS: INSULIN LISPRO SLIDING SCALE 100 UNITS/ML VIAL SUBQ PRN ×4 (08:21→21:05)
--- NOTE | 2022-05-06 08:40 | NUR ---
DUE MEDS GIVEN. TOLERATED WELL
[2022-05-06] MEDS ORDERED: INSULIN LANTUS 100 UNITS/ML 10 ML VIAL SUBQ SCH ×2 (09:00→21:00)
[2022-05-06] MEDS: MUPIROCIN CA NASAL 2% 1GM TUBE NS SCH (09:58)
[2022-05-06] MEDS: CHLORHEXADINE GLUC 2% CLOTH TP SCH (09:58)
--- NOTE | 2022-05-06 10:00 | NUR ---
DR BRANDT AT BEDSIDE, SPOKE TO THE PT ABOUT PLAN FOR MRI AND ITS BENEFITS. PT REFUSED TO HAVE MRI DONE. DR HESTER NOTIFIED, NO FURTHER ORDERS
--- NOTE | 2022-05-06 13:50 | NUR ---
pt spoke to family, pt decided to undergo MRI. SS notified
--- NOTE | 2022-05-06 15:41 | NUR ---
PT OFF UNIT TO [facility] FOR MRI
--- NOTE | 2022-05-06 17:20 | NUR ---
pt back from [facility], transferred to [place] [id number]
--- NOTE | 2022-05-06 20:00 | NUR ---
RECEIVED BEDSIDE REPORT FROM DAY RN FOR CONTINUITY OF CARE. RECEIVED PT A/A/OX3, LAYING IN BED WATCHING TV, FAMILY AT THE BEDSIDE. PT NOT IN ANY DISTRESS AND NO COMPLAIN AT THIS TIME. INSTRUCTED PT TO CALL FOR ASSISTANCE AT ALL TIMES AND NOT TO GET OOB BY HERSELF. PATIENT VERBALIZED UNDERSTANDING. BED IN LOW AND LOCKED POSITION. CALL LIGHT WITHIN REACH. WILL CONTINUE POC AND MONITORING.
[2022-05-06] MEDS: INSULIN LANTUS 100 UNITS/ML 10 ML VIAL SUBQ SCH (21:06)
--- NOTE | 2022-05-06 22:00 | NUR ---
ADMINISTERED ALL THE SCHEDULED MEDS ORDERED. NO ADVERSE DRUG REACTION NOTED. AND NO COMPLAIN FROM THE PATIENT. WILL CONTINUE TO OBSERVE THE PT.
[2022-05-07] VITALS: BP 161/79
--- NOTE | 2022-05-07 | NUR ---
VITAL SIGNS STABLE, AFEBRILE, SATING 97% ON RA. NO COMPLAIN OF PAIN. SR ON TELE, HR-84. WILL CONTINUE MONITORING.
[2022-05-07] MEDS: Z-GUARD PASTE TP SCH ×2 (01:47→12:35)
--- NOTE | 2022-05-07 02:13 | NUR ---
PATIENT CALLED AND WANTED TO USE THE RESTROOM . REMINDED THE PATIENT THAT SHE IS TOO WEAK TO GET OUT OF BED. ALSO MADE PATIENT AWARE THAT WE WILL NOTIFY MD TO GET AN ORDER FOR PHYSICAL THERAPY TO GET A BASELINE WHAT'S HER CAPABILITY. PT SP FALL AT HOME. PT STATED " YES I FEEL WEAK AND MAYBE IF SOMEONE HELP ME TO GO TO THE BATHROOM I'LL BE ABLE TO". REMINDED PT AGAIN THAT SHE NEEDS TO WORK WITH P.T. FIRST. PT VERBALIZED UNDERSTANDING. CALL LIGHT WITHIN REACH.
[2022-05-07 04:00] VITALS: BP 135/65
--- NOTE | 2022-05-07 04:00 | NUR ---
AM CARE PROVIDED. PT HAS NO COMPLAIN AT THIS TIME. CALL LIGHT WITHIN REACH.
[2022-05-07] MEDS: BLOOD GLUCOSE MONITORING 1 DEV DEV FS SCH ×2 (06:13→11:30)
--- NOTE | 2022-05-07 06:22 | NUR ---
NO ACUTE EVENT THROUGHOUT THE NIGHT. PATIENT STABLE. NO SIGN AND SYMPTOMS OF DISTRESS NOTED AND NO COMPLAIN FROM THE PATIENT. ALL NEEDS ATTENDED. CALL LIGHT WITHIN REACH. WILL ENDORSE THE PATIENT TO THE ONCOMING RN FOR CONTINUITY OF CARE.
[2022-05-07 07:35] LABS: BASOPHILS % (AUTO) 0.5 % (0.0-2.0); EOSINOPHILS # (AUTO) 0.1 K/uL (0-0.4); HEMATOCRIT 33.3 % (36-48); HEMOGLOBIN 11.1 g/dL (12.0-16.0); LYMPHOCYTES # (AUTO) 1.5 K/uL (2.5-16.5); LYMPHOCYTES % (AUTO) 21.3 % (20.5-51.1); MEAN CORPUSCULAR HEMOGLOBIN 31 pg (27-31); MEAN CORPUSCULAR HGB CONC 33 g/dL (33-37); MEAN CORPUSCULAR VOLUME 94.5 fL (80-94); MONOCYTES # (AUTO) 0.6 K/uL (0.8-1.0); MONOCYTES % (AUTO) 8.1 % (1.7-9.3); NEUTROPHILS # (AUTO) 4.8 K/uL (1.8-7.7); NEUTROPHILS % (AUTO) 68.1 % (42.2-75.2); PLATELET COUNT (AUTO) 292 K/uL (140-450); RED BLOOD CELL COUNT(AUTO) 3.53 MIL/uL (4.20-5.40); RED CELL DISTRIBUTION WIDTH 15.6 % (11.6-13.7); WHITE BLOOD COUNT (AUTO) 7.1 K/uL (4.8-10.8)
--- NOTE | 2022-05-07 07:44 | NUR ---
ENDORSED PT TO THE ONCOMING RN FOR CONTINUITY OF CARE. PT STABLE. SIGNING OFF.
--- NOTE | 2022-05-07 07:45 | NUR ---
RECEIVED REPORT FROM NIGHT NURSE
[2022-05-07 08:00] VITALS: BP 125/70
[2022-05-07 08:38] LABS: ALBUMIN 1.6 g/dL (3.4-5.0); ASPARTATE AMINOTRANSFERASE 14 U/L (15-37); CARBON DIOXIDE 24.7 mmol/L (21-32); CHLORIDE 112 mmol/L (98-107); CREATININE 0.5 mg/dL (0.6-1.3); GLUCOSE 85 mg/dL (74-106); MAGNESIUM 1.8 mg/dL (1.8-2.4); POTASSIUM 3.7 mmol/L (3.5-5.1); SODIUM SERUM 144 mmol/L (136-145); TOTAL BILIRUBIN 0.2 mg/dL (0.0-1.0); UREA NITROGEN, BLOOD 8 mg/dL (7-18)
[2022-05-07] MEDS: MUPIROCIN CA NASAL 2% 1GM TUBE NS SCH (08:49)
[2022-05-07] MEDS: AMOXIL/CLAVULANATE 875/125 MG 1 TAB PO SCH (08:49)
[2022-05-07] MEDS: INSULIN LANTUS 100 UNITS/ML 10 ML VIAL SUBQ SCH (08:50)
--- NOTE | 2022-05-07 09:10 | NUR ---
DUE MEDS GIVEN
[2022-05-07] MEDS: CHLORHEXADINE GLUC 2% CLOTH TP SCH (09:14)
[2022-05-07] MEDS: levETIRAcetam 1,000 MG in NACL 0.9% 100 ML IV SCH (09:14)
[2022-05-07 12:00] VITALS: BP 129/65
--- NOTE | 2022-05-07 12:00 | NUR ---
FAMILY AT BEDSIDE, UPDATED ON PLAN OF CARE
[2022-05-07] MEDS: INSULIN LISPRO SLIDING SCALE 100 UNITS/ML VIAL SUBQ PRN (12:35)
--- NOTE | 2022-05-07 14:02 | NUR ---
NOTIFIED DR BRANDT ABOUT MRI RESULTS, WILL PUT DC ORDER
[2022-05-07] MEDS ORDERED: BRIV25TA PO (14:43)
--- NOTE | 2022-05-07 15:20 | NUR ---
Patient discharged with v/s stable. Written and verbal after care instructions given and explained. Patient alert, oriented and verbalized understanding of instructions. Wheel Chair Assisted with to car. All questions addressed prior to discharge. ID band removed. Patient advised to follow up with PMD. Rx given. Patient educated on indication of medication including possible reaction and side effects. Opportunity to ask questions provided and answered.
== END 2022-05-07 15:25 | disposition home or self-care (01) | DRG 100 ==
LOC: MED 15:54 → MMU 22:09 → MIC 23:21 → MTU 05-06 17:20
PROVIDERS: ADMIT Internal Medicine; ATTEND Internal Medicine
PROC: 4A10X4Z Monitoring of Central Nervous Electrical Activity, External Approach (ICD-10-PCS; principal; 2022-05-05)
DX: G40.909 Epilepsy, unspecified, not intractable, without status epilepticus (principal); E11.10 Type 2 diabetes mellitus with ketoacidosis without coma; E43 Unspecified severe protein-calorie malnutrition; R65.10 Systemic inflammatory response syndrome (SIRS) of non-infectious origin without acute organ dysfunction; I10 Essential (primary) hypertension; M06.9 Rheumatoid arthritis, unspecified; E11.65 Type 2 diabetes mellitus with hyperglycemia; R25.8 Other abnormal involuntary movements; E87.6 Hypokalemia; E83.42 Hypomagnesemia; L03.012 Cellulitis of left finger; Z79.899 Other long term (current) drug therapy; Z90.49 Acquired absence of other specified parts of digestive tract
CPT/HCPCS: 36415; 70450; 73110; 80048; 80053; 81001; 82948; 83735; 84100; 85025; 87081; 87086; 96361; 96365; 99291; J1644; J1815; J1953; J3475; J3480; J7030; Q0092